=== PATIENT | female | born 1945 | race African-American/Black ===

== ENCOUNTER 2024-05-25 14:44 | Emergency (ER) | payer OTHER, BC, MEDICAID ==
[2024-05-25 15:31] LABS: Bilirubin Neg (Negative); Blood, Urine Negative (Negative); Clarity Slightly Cloudy (Clear); Glucose, Urine (Dipstick) Normal (Negative); Ketone, Urine Negative (Negative); Leukocyte 25 (Negative); Nitrite Negative (Negative); Protein, Urine (Dipstick) 15 mg/dl (Neg-Trace); Urobilinogen Normal mg/dL (Less than 2)
[2024-05-25 16:00] LABS: #Basophils 0.02 10x3/uL (0.0-0.2); #Eosinophils 0.15 10x3/uL (0.0-0.5); #Monocytes 0.66 10x3/uL (0.0-1.1); #Neutrophils 3.68 10x3/uL (1.5-8.4); %Basophils 0.3 % (0.0-2.0); %Eosinophils 2.3 % (0.0-6.0); %Lymphocytes 30.6 % (18.0-47.0); %Monocytes 10.1 % (0.0-10.0); %Neutrophils 56.5 % (40.0-75.0); Hematocrit 35.6 % (34.9-44.5); Hemoglobin 11.4 g/dL (12.0-15.5); Mean Corpuscular Hemoglobin 28.6 pg (27.0-33.0); Mean Corpuscular Volume 89.2 fL (81.6-98.3); Mean Platelet Volume 8.9 fL (7.4-10.4); Platelet Count 320 10x3/uL (150-450); RBC Distribution Width 12.3 % (11.5-14.5); Red Blood Cell (RBC) Count 3.99 10x6/uL (3.90-5.03); White Blood Cell (WBC) Count 6.5 10x3/uL (3.5-10.5)
[2024-05-25 16:08] LABS: Bacteria/HPF 2+ HPF (None Seen); CAUTI Indications for Culture Pelvic or flank pain; RBC/HPF 0-3 HPF (0-3)
[2024-05-25 16:08] LABS: ALT (SGPT) 8 U/L (8-55); AST (SGOT) 15 U/L (5-34); Albumin 3.4 g/dL (3.4-4.8); Alkaline Phosphatase 71 U/L (40-110); Anion Gap 12 mmol/L (10-20); BUN (Urea Nitrogen) 12 mg/dL (9.8-20.1); Bilirubin, Total 0.3 mg/dL (0.2-1.2); Calc. Creatinine Clearance 0 mL/min (70-130); Calcium 10.1 mg/dL (7.8-10.44); Carbon Dioxide 28 mmol/L (23-31); Chloride 102 mmol/L (98-107); Estimated GFR 66; Globulin 4.5 g/dL (2.4-3.5); Glucose 83 mg/dL (83-110); Potassium 4.1 mmol/L (3.5-5.1); Protein, Total 7.9 g/dL (5.8-8.1); Sodium 138 mmol/L (136-145)
[2024-05-25 16:10] LABS: Mucous/LPF 2+ LPF (<2+); Urine Culture Reflex No No
== END 2024-05-25 18:20 | disposition home or self-care (01) ==
LOC: CSHERS 14:44
DX: N39.0 Urinary tract infection, site not specified (principal); L30.4 Erythema intertrigo; E78.00 Pure hypercholesterolemia, unspecified; I10 Essential (primary) hypertension; Z79.899 Other long term (current) drug therapy
CPT/HCPCS: 74177; 80053; 81001; 83605; 85025; 87086

== ENCOUNTER 2024-11-23 12:12 | Inpatient (IN) | payer OTHER, BC, MEDICAID ==
[2024-11-23] MEDS ORDERED: cloNIDine 0.1 MG TAB ONE (12:51)
[2024-11-23] MEDS ORDERED: Aspirin Chewable 81 MG TAB ONE (12:51)
[2024-11-23 12:53] LABS: #Basophils Less than 0.03 10x3/uL (0.0-0.2); #Eosinophils 0.17 10x3/uL (0.0-0.5); #Monocytes 0.69 10x3/uL (0.0-1.1); #Neutrophils 3.73 10x3/uL (1.5-8.4); %Basophils 0.2 % (0.0-2.0); %Eosinophils 2.6 % (0.0-6.0); %Lymphocytes 30.5 % (18.0-47.0); %Monocytes 10.4 % (0.0-10.0); Hematocrit 34.2 % (34.9-44.5); Hemoglobin 11.1 g/dL (12.0-15.5); Mean Corpuscular HGB CONC 32.5 g/dL (32.0-36.0); Mean Corpuscular Hemoglobin 28.6 pg (27.0-33.0); Mean Corpuscular Volume 88.1 fL (81.6-98.3); Platelet Count 223 10x3/uL (150-450); RBC Distribution Width 12.5 % (11.5-14.5); Red Blood Cell (RBC) Count 3.88 10x6/uL (3.90-5.03); White Blood Cell (WBC) Count 6.65 10x3/uL (3.5-10.5)
[2024-11-23 13:13] LABS: ALT (SGPT) 10 U/L (Less than 34); AST (SGOT) 16 U/L (11-34); Albumin 3.5 g/dL (3.1-4.5); Alkaline Phosphatase 66 U/L (40-110); Anion Gap 13 mmol/L (10-20); BUN (Urea Nitrogen) 13 mg/dL (9.8-20.1); Bilirubin, Total 0.3 mg/dL (0.3-1.2); Calc. Creatinine Clearance 0 mL/min (70-130); Carbon Dioxide 22 mmol/L (23-31); Chloride 108 mmol/L (98-107); Estimated GFR 74; Globulin 3.8 g/dL (2.4-3.5); Glucose 104 mg/dL (83-110); Potassium 3.7 mmol/L (3.5-5.1); Protein, Total 7.3 g/dL (5.8-8.1); Sodium 139 mmol/L (136-145)
[2024-11-23] MEDS ORDERED: Nitroglycerin 0.4 MG TAB (25 Tab Bottle) SL PRN (14:53)
[2024-11-23] MEDS ORDERED: Furosemide 40 MG (4 mL) VIAL ONE (15:06)
[2024-11-23 15:56] LABS: Troponin I 0.014 ng/mL (< 0.028)
[2024-11-23 16:01] LABS: Iron 72 ug/dL (50-170); Iron Binding Capacity, Total 318 mcg/dL (265-497)
[2024-11-23] MEDS: Carvedilol 12.5 MG TAB PO SCH (19:10)
[2024-11-23] MEDS: NIFEdipine XL 30 MG ER.TAB PO SCH (19:10)
[2024-11-23] MEDS: Losartan 50 MG TAB PO SCH (19:12)
[2024-11-23 23:58] LABS: Bilirubin Neg (Negative); Blood, Urine Negative (Negative); Clarity Clear (Clear); Glucose, Urine (Dipstick) Normal (Negative); Ketone, Urine Negative (Negative); Leukocyte Negative (Negative); Nitrite Negative (Negative); Protein, Urine (Dipstick) Negative (Neg-Trace); Urobilinogen Normal mg/dL (Less than 2)
[2024-11-24 00:26] LABS: RBC/HPF 0-3 HPF (0-3)
[2024-11-24 00:27] LABS: Bacteria/HPF 3+ HPF (None Seen); CAUTI Indications for Culture Dysuria,urgency,freq; Squamous Epithelial 0-3 HPF (0-3)
[2024-11-24 00:28] LABS: Urine Culture Reflex No No
[2024-11-24 04:33] LABS: #Basophils Less than 0.03 10x3/uL (0.0-0.2); #Eosinophils 0.15 10x3/uL (0.0-0.5); #Monocytes 0.54 10x3/uL (0.0-1.1); %Basophils 0.3 % (0.0-2.0); %Eosinophils 2.2 % (0.0-6.0); %Lymphocytes 20.4 % (18.0-47.0); %Monocytes 7.9 % (0.0-10.0); %Neutrophils 68.9 % (40.0-75.0); Hematocrit 31.4 % (34.9-44.5); Hemoglobin 10.6 g/dL (12.0-15.5); Mean Corpuscular HGB CONC 33.8 g/dL (32.0-36.0); Mean Corpuscular Hemoglobin 29.7 pg (27.0-33.0); Mean Platelet Volume 8.8 fL (7.4-10.4); Platelet Count 220 10x3/uL (150-450); RBC Distribution Width 12.3 % (11.5-14.5); Red Blood Cell (RBC) Count 3.57 10x6/uL (3.90-5.03); White Blood Cell (WBC) Count 6.82 10x3/uL (3.5-10.5)
[2024-11-24 04:51] LABS: Anion Gap 13 mmol/L (10-20); BUN (Urea Nitrogen) 16 mg/dL (9.8-20.1); Calc. Creatinine Clearance 103 mL/min (70-130); Calcium 8.8 mg/dL (7.8-10.44); Carbon Dioxide 26 mmol/L (23-31); Cardiac Risk 4.2 (Less than 4.5); Chloride 106 mmol/L (98-107); Cholesterol 180 mg/dl (< 200 Desired); Estimated GFR 71; Glucose 130 mg/dL (83-110); HDL Cholesterol 43 mg/dL (>60 Neg Risk); LDL Cholesterol, Calculated 117 mg/dL; Potassium 4.3 mmol/L (3.5-5.1); Sodium 141 mmol/L (136-145); Triglycerides 100 mg/dL (Less than 150)
[2024-11-24] MEDS: Furosemide 20 MG (2 mL) VIAL SLOW IVP SCH (06:03)
[2024-11-24] MEDS: Aspirin Chewable 81 MG TAB PO SCH (08:14)
[2024-11-24] MEDS: Losartan 50 MG TAB PO SCH (08:14)
[2024-11-24] MEDS: NIFEdipine XL 30 MG ER.TAB PO SCH (08:15)
[2024-11-24] MEDS: Carvedilol 12.5 MG TAB PO SCH (08:15)
[2024-11-24] MEDS ORDERED: NIFEdipine XL 30 MG ER.TAB PO SCH (09:00)
[2024-11-24] MEDS: Furosemide 40 MG (4 mL) VIAL SLOW IVP SCH (14:37)
[2024-11-24] MEDS: Enoxaparin 40 MG (0.4 mL) SYRINGE SC SCH (21:05)
[2024-11-25 04:09] LABS: #Basophils Less than 0.03 10x3/uL (0.0-0.2); #Eosinophils 0.12 10x3/uL (0.0-0.5); #Monocytes 0.75 10x3/uL (0.0-1.1); #Neutrophils 4.58 10x3/uL (1.5-8.4); %Basophils 0.3 % (0.0-2.0); %Eosinophils 1.6 % (0.0-6.0); %Lymphocytes 28.8 % (18.0-47.0); %Monocytes 9.7 % (0.0-10.0); %Neutrophils 59.2 % (40.0-75.0); Hematocrit 32.2 % (34.9-44.5); Hemoglobin 10.7 g/dL (12.0-15.5); Mean Corpuscular HGB CONC 33.2 g/dL (32.0-36.0); Mean Corpuscular Hemoglobin 29.3 pg (27.0-33.0); Mean Corpuscular Volume 88.2 fL (81.6-98.3); Mean Platelet Volume 8.6 fL (7.4-10.4); Platelet Count 216 10x3/uL (150-450); RBC Distribution Width 12.3 % (11.5-14.5); Red Blood Cell (RBC) Count 3.65 10x6/uL (3.90-5.03); White Blood Cell (WBC) Count 7.73 10x3/uL (3.5-10.5)
[2024-11-25 04:26] LABS: Anion Gap 11 mmol/L (10-20); BUN (Urea Nitrogen) 18 mg/dL (9.8-20.1); Calc. Creatinine Clearance 98 mL/min (70-130); Calcium 9.1 mg/dL (7.8-10.44); Carbon Dioxide 26 mmol/L (23-31); Chloride 107 mmol/L (98-107); Estimated GFR 68; Glucose 116 mg/dL (83-110); Potassium 3.8 mmol/L (3.5-5.1); Sodium 140 mmol/L (136-145)
[2024-11-25 06:23] VITALS: BMI 41.9
[2024-11-25] MEDS: Amlodipine 5 MG TAB PO SCH (09:11)
[2024-11-25] MEDS: Losartan 50 MG TAB PO SCH (09:11)
[2024-11-25] MEDS: Potassium Chloride 20 MEQ TAB PO SCH (09:12)
[2024-11-25 12:08] LABS: Hemoglobin A1c 5.6 % (4.0-6.0)
[2024-11-26 04:07] LABS: Anion Gap 12 mmol/L (10-20); BUN (Urea Nitrogen) 23 mg/dL (9.8-20.1); Calc. Creatinine Clearance 93 mL/min (70-130); Calcium 9.2 mg/dL (7.8-10.44); Carbon Dioxide 25 mmol/L (23-31); Chloride 107 mmol/L (98-107); Estimated GFR 63; Glucose 104 mg/dL (83-110); Potassium 3.8 mmol/L (3.5-5.1); Sodium 140 mmol/L (136-145)
[2024-11-26] MEDS: Potassium Chloride 20 MEQ TAB PO SCH (10:38)
[2024-11-26] MEDS: hydrALAZINE 25 MG TAB PO SCH (11:08)
[2024-11-26 15:36] VITALS: TEMP 98
[2024-11-26] MEDS: Furosemide 40 MG TAB PO SCH (15:42)
[2024-11-26] MEDS: Labetalol HCl 100 MG/20 ML VIAL SLOW IVP SCH (15:52)
[2024-11-26 15:58] VITALS: BP 170/64
[2024-11-26] MEDS ORDERED: hydrALAZINE 25 MG TAB PO SCH (21:00)
== END 2024-11-26 18:27 | disposition home or self-care (01) | DRG 291 ==
LOC: CSHERS 12:12 → CSHTELE 14:53 → OBSVTOIN 11-25 12:44
PROVIDERS: ADMIT Hospitalist; ATTEND Hospitalist
DX: I11.0 Hypertensive heart disease with heart failure (principal); I50.33 Acute on chronic diastolic (congestive) heart failure; Z68.41 Body mass index [BMI] 40.0-44.9, adult; E66.01 Morbid (severe) obesity due to excess calories; I89.0 Lymphedema, not elsewhere classified; Z88.0 Allergy status to penicillin; Z88.1 Allergy status to other antibiotic agents; E78.5 Hyperlipidemia, unspecified; Z90.49 Acquired absence of other specified parts of digestive tract; Z90.710 Acquired absence of both cervix and uterus; F03.90 Unspecified dementia, unspecified severity, without behavioral disturbance, psychotic disturbance, mood disturbance, and anxiety; Z79.899 Other long term (current) drug therapy
CPT/HCPCS: 36415; 71046; 80048; 80053; 80061; 81001; 82728; 83036; 83540; 83550; 83735; 83880; 84443; 84484; 85025; 86140; 93005; 93306; 96372; 96374; 96376; G0378; J1650; J1940